=== PATIENT | male | born 1995 | race African-American/Black ===

== ENCOUNTER → 2020-01-28 | Outpatient (CLI) | payer BC, OTHER ==
--- NOTE | 2020-01-28 10:54 | ER RDC ASSESSMENT REPORT ---
Intake - In the Last 14 days Have you traveled outside [place]?: No Have you been in close contact with someone CONFIRMED: No Worked in Healthcare?: No - Symptoms Subjective Fever(Heber feverish): No Chills: No Muscule Aches: No Runny Nose: Yes Sore Throat: Yes Cough (New or worsening chronic cough): No Shortness of breath: No Nausea or Vomiting: No Headache: No Abdominal Pain: No Diarrhea(3 or more loose stools in last 24 hours): No - Do you have any of the following Chronic lung disease: Asthma or emphysema or COPD: No Cystic Fibrosis: No Diabetes: No High Blood Pressure: No Cardiovascular Disease: No Chronic Kidney Disease: No Chronic Liver Disease: No Chronic blood disorder like Sickle Cell Disease: No Weak immune system due to disease or medication: No Neurologic condition that limits movement: No Developmental delay - Moderate to Severe: No Recent (within past 2 weeks) or current : No Morbid Obesity (>100 pounds over ideal weight): No - Objective Temperature: 97.9 F Pulse Rate: 79 Respiratory Rate: 16 Blood Pressure: 117/72 O2 Sat by Pulse Oximetry: 96 Objective: Patient is a well-appearing 24-year-old male who presents today for COVID-19 screening. Disposition: Home; Selfcare General - General Stated Complaint: Upper respiratory symptoms Mode of Arrival: Ambulatory Information source: Patient Notes: The patient was evaluated during the global COVID-19 pandemic. That diagnosis was suspected/considered upon initial presentation. Their evaluation, treatment, and testing was consistent with current guidelines for patients who present with complaints or symptoms that may be related to COVID-19. 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 HEAD: Atraumatic, normocephalic. EYES: sclera anicteric, conjunctiva are normal. ENT: nares patent. Moist mucous membranes. NECK: Normal range of motion, supple without lymphadenopathy. LUNGS: CTAB and equal. No wheezes rales or rhonchi. HEART: Regular rate and rhythm without murmurs. EXTREMITIES: Normal range of motion, no pitting edema. No cyanosis. BACK: No midline or CVA tenderness. NEUROLOGICAL: Cranial nerves grossly intact. Normal speech. Normal gait. PSYCH: Normal mood, normal affect. SKIN: Warm, Dry, normal color and turgor, no obvious lesions or rash noted. Diagnostic Results Laboratory Results: Patient advised at this time they are considered a Person Under Investigation (PUI) for the COVID-19 Coronavirus. They have been made aware it is currently taking 3-5 days to receive their results, and The [facility] Department will call to advise them of their result, whether it is POSITIVE or NEGATIVE. Patient Education/Counseling Counseling/Education: Patient presents with upper respiratory symptoms worrisome for possible COVID- 19. Patient does not have symptoms worrisome as an emergency such as difficulty breathing, shortness of breath, chest pain, pressure, confusion or cyanosis. Patient appears suitable for discharge. Patient's vital signs are stable and patient is nontoxic in appearance. Good return precautions have been discussed with patient, patient verbalized understanding and is agreeable with discharge plan of care at this time. Patient provided COVID-19 discharge instructions to include: As a person under investigation for COVID-19, the [place] department of Health and Human Services, division of public health advises you to adhere to th e following guidance until your test results are reported to you. If your test result is positive, you will receive additional information from your provider and your local health department at that time. Remain at home until you are cleared by the health provider or public health authorities. Keep a log of visitors to your home, notify any visitors to your home of your isolation status. If you plan to move to a new address or leave the [facility], notify the local health department in your County. Call your doctor or seek care if you have an urgent medical need. Before seeking medical care, call ahead to get instructions from the provider before arriving at the medical office clinic or hospital. Notify them that you are being tested for the virus that causes COVID-19 so that arrangements can be made, as necessary, to prevent transmission to others in the healthcare setting. Next, notify the local health department in your county. If a medical emergency arises and you need to call 911, inform dispatch and the first responders that you are being tested for the virus that causes COVID-19. Next, notify the local health department in your county. Guidance for worsening S/SX: For worsening symptoms, patient has been advised to contact their Primary Care Provider, or go to the nearest Emergency Department. RDC Discharge - Discharge Clinical Impression: COVID-19 Screening URI (upper respiratory infection) Qualifiers: URI type: unspecified URI Qualified Code(s): J06.9 - Acute upper respiratory infection, unspecified Condition: Stable Disposition: Home; Selfcare
[2020-01-28 11:07] VITALS: BP 117/72
== END ==
LOC: RDC 09:47
PROVIDERS: ATTEND Nurse Practitioner Family
DX: Z20.828 Contact with and (suspected) exposure to other viral communicable diseases (principal); J06.9 Acute upper respiratory infection, unspecified; J02.9 Acute pharyngitis, unspecified; J34.89 Other specified disorders of nose and nasal sinuses
CPT/HCPCS: 87635; C9803; 99201

== ENCOUNTER 2020-03-30 19:25 | Emergency (ER) | payer OTHER ==
[2020-03-30] MEDS ORDERED: FAMOTIDINE 20 MG TABLET PO ONE (19:40)
[2020-03-30] MEDS ORDERED: PREDNISONE 20 MG TABLET PO ONE (19:40)
--- NOTE | 2020-03-30 19:42 | ER Document Report ---
HPI - HPI Time Seen by Provider: 03/30/20 19:33 Pain Level: Denies Context: Patient is a 24-year-old male who presents emergency department with a chief complaint of a rash to his entire body. Patient had a rapid COVID done at his primary care provider, which was negative. Patient also had a rapid strep, which was negative. - ROS Systems Reviewed and Negative: Yes All other systems reviewed and negative - CONSTITUTIONAL Constitutional: DENIES: Fever, Chills - EENT EENT: REPORTS: Sore Throat - RESPIRATORY Respiratory: DENIES: Trouble Breathing, Coughing - GASTROINTESTINAL Gastrointestinal: DENIES: Abdominal Pain, Nausea, Patient vomiting - URINARY Urinary: DENIES: Dysuria - DERM Skin Color: Normal Skin Problems: None Past Medical History - Social History Smoking Status: Never Smoker Chew tobacco use (# tins/day): No Frequency of alcohol use: None Drug Abuse: None Family History: Reviewed & Not Pertinent Vertical Provider Document - CONSTITUTIONAL Agree With Documented VS: Yes Exam Limitations: No Limitations General Appearance: No Apparent Distress - HEENT HEENT: Atraumatic, Normocephalic, PERRLA, Pharyngeal Tenderness, Pharyngeal Erythema. negative: Conjuctival Injection, Pharyngeal Exudate, Tympanic Membrane Red, Tympanic Membrane Bulging - RESPIRATORY Respiratory: Breath Sounds Normal, No Respiratory Distress - CARDIOVASCULAR Cardiovascular: Regular Rate, Regular Rhythm Pulses: Normal: Radial - GI/ABDOMEN Gastrointestinal: Abdomen Soft, Abdomen Non-Tender - MUSCULOSKELETAL/EXTREMETIES Musculoskeletal/Extremeties: FROM - NEURO Level of Consciousness: Awake, Alert, Appropriate Motor/Sensory: No Motor Deficit, No Sensory Deficit - DERM Integumentary: Warm, Dry, Rash - on back and shoulders Course - Re-evaluation Re-evalutation: 03/30/20 21:45 Rapid strep and mono test are negative. Patient's rash cleared up a little bit with Pepcid and prednisone. We will continue the patient on Pepcid and prednisone. Patient reported that he did have oral sex with another person. He was concerned for possible STIs. We will empirically treat the patient for gonorrhea and chlamydia, as he does have a concern for oral STIs. We will send gonorrhea and chlamydia throat culture. No evidence of peritonsillar abscess noted. Airway is patent. Follow-up precautions were given. Verbal discharge instructions were given to the patient. They verbalized understanding. They are stable for discharge. - Vital Signs Vital signs: Temp Pulse Resp BP Pulse Ox 98.4 F 84 18 112/73 99 03/30/20 19:30 03/30/20 19:30 03/30/20 19:30 03/30/20 19:30 03/30/20 19:30 Discharge - Discharge Clinical Impression: Sore throat, Rash Condition: Stable Disposition: HOME, SELF-CARE Additional Instructions: You were seen today in the emergency department for sore throat and a rash. You were treated for gonorrhea and chlamydia here in the emergency department. If these are positive, you will be called. Please do not have any sex for the next week. If these tests are positive, please let the person that you have had sex with know that you tested positive. Continue to take the prednisone for the rash. Also take Pepcid. Continue Benadryl 50 mg every 6 hours for your rash. Prescriptions: Prednisone [Deltasone 20 mg Tablet] 3 tab PO DAILY 4 Days #12 tablet Famotidine [Pepcid 20 mg Tablet] 20 mg PO BID #20 tablet Referrals: BIANCA CLAYTON MD [Primary Care Provider] - 04/02/20
[2020-03-30] MEDS ORDERED: CEFTRIAXONE INJ 250 MG VIAL IM ONE (21:43)
[2020-03-30] MEDS ORDERED: LIDOCAINE 1% INJ-PF (10 MG/ML) 30 ML SDV INJ ONE (21:43)
[2020-03-30] MEDS ORDERED: AZITHROMYCIN 250 MG TABLET PO ONE (21:43)
[2020-03-30] MEDS ORDERED: DIPHENHYDRAMINE HCL 50 MG CAPSULE PO ONE (22:04)
[2020-03-30 22:20] VITALS: BP 130/91
== END 2020-03-30 22:20 | disposition home or self-care (01) ==
LOC: ER 19:25
DX: R21 Rash and other nonspecific skin eruption (principal); J02.9 Acute pharyngitis, unspecified
CPT/HCPCS: 99284; 96372; 36415; 87070; 87880; 87491; 87591; 87077; 86308; J3490; J7512; J0696